=== PATIENT | male | born 1940 | race African-American/Black ===

== ENCOUNTER 2016-07-28 15:47 | Emergency (ER) | payer MEDICARE, BC ==
[~2016-07-28] VITALS: Ht 165.1 cm; Wt 100.2 kg
[~2016-07-28 15:47] MED LIST: CRES10 PO; LORA-186 PO
[2016-07-28 15:51] VITALS: Ht 165.1 cm; Wt 100.2 kg
--- NOTE | 2016-07-28 19:11 | RADRPT ---
PROCEDURE: XR Hand. CLINICAL INDICATION: Pain. TECHNIQUE: Three views of the left hand. COMPARISON: None available. FINDINGS: There are fractures of the fourth metacarpal proximal metaphysis of the fifth metacarpal base. The j oint spaces are preserved. There is soft tissue swelling in the region of the fractures. IMPRESSION: 1. Fractures of the fourth metacarpal proximal metaphysis of the fifth metacarpal base. RPTAT: HTAR .Rell Loo MD, Date Time Electronically viewed and signed by .Rell Loo MD, on 07/28/2016 19:11 .R/
--- NOTE | 2016-07-28 19:17 | RADRPT ---
PROCEDURE: CT Brain without contrast. CLINICAL INDICATION: Trauma, headache. TECHNIQUE: A CT of the brain was performed utilizing axial sections from the skull base through th e vertex without contrast. Multiplanar re-formations were generated. Images were reviewed on a high- resolution PACS workstation. CTDIvol: 38.01 mGy. DLP: 6 mm 34.23 mGy-cm. One or more of the following dose reduction techniques were used: - Automated exposure control. - Adjustment of the mA and/or kV according to patient size. - Use of iterative reconstruction technique. COMPARISON: None available FINDINGS: There is mild to moderate generalized volume loss. No hydrocephalus is seen. There is no mass effec t. No acute intracranial hemorrhage is identified. There is no extra-axial collection. No CT eviden ce of acute infarction is identified. There is patchy low attenuation in the supratentorial white m atter, a nonspecific finding which most likely represents the sequela of mild chronic microvascular ischemic disease. There are mild atherosclerotic arterial calcifications. There is a small retention cyst in the right maxillary sinus. The visualized mastoid air cells are c lear. The ossesous structures are unremarkable. There is a 1.6 x 0.8 cm lipoma overlying the left fo rehead. IMPRESSION: 1. No acute intracranial pathology. 2. Mild to moderate generalized volume loss. 3. Mild chronic microvascular ischemic changes. 4. Atherosclerotic arterial calcifications. RPTAT: HTAR .Rell Loo MD, MD Date Time Electronically viewed and signed by .Rell Loo MD, on 07/28/2016 19:17 .R/
[2016-07-28] MEDS ORDERED: ACET500C5 PO (19:20)
--- NOTE | 2016-07-28 19:25 | ERD ---
ER Documentation Chief Complaint Date/Time DATE: 07/28/16 TIME: 19:23 Chief Complaint L hand pain since lst night after GLF also abrasion to forehead. HPI This 76-year-old male tripped and fell last night. He complains of swelling and pain in his left hand without restricted range of motion weakness and a bump on the forehead. Denies loss of consciousness, vomiting, visual changes, neck pain, weakness. Patient lives alone without a systems librarian or roommate. ROS All systems reviewed and are negative except as per history of present illness. Medications Home Meds Active Scripts Acetaminophen* (Tylophen*) 500 Mg Capsule, 1 CAP PO Q6H Y for PAIN AND OR ELEVATED TEMP, #15 CAP Prov:AFSHAN LOPEZ MD 07/28/16 Reported Medications Loratadine* (Claritin*) Unknown Strength Tablet, PO DAILY, TAB 06/19/15 Rosuvastatin Calcium* (Crestor*) 10 Mg Tablet, 10 MG PO DAILY 04/18/13 Allergies Allergies: Coded Allergies: No Known Allergy (Unverified , 07/16/13) PMhx/Soc History of Surgery: Yes (PIN TO RIGHT LEG 10 YEARS AGO, HERNIA REPAIR) Anesthesia Reaction: No Hx Neurological Disorder: No Hx Respiratory Disorders: No Hx Cardiac Disorders: No Hx Psychiatric Problems: No Hx Miscellaneous Medical Probl: Yes (ARTHRITIS) Hx Alcohol Use: No Hx Substance Use: No Hx Tobacco Use: No Physical Exam Vitals Vital Signs Date Time Temp Pulse Resp B/P Pulse Ox O2 Delivery O2 Flow Rate FiO2 07/28/16 15:51 96.8 72 18 139/87 99 Physical Exam Const: [] Alert, [id number] per Head: Atraumatic there is a hematoma on the top of the forehead without appreciable step-offs or deformities. Eyes: Normal Conjunctiva ENT: Normal External Ears, Nose and Mouth. No hemotympanum. Neck: Full range of motion..~ No meningismus. Neck nontender Resp: Clear to auscultation bilaterally Cardio: Regular rate and rhythm, no murmurs Abd: Soft, non tender, non distended. Normal bowel sounds Skin: No petechiae or rashes Back: No midline or flank tenderness Ext: No cyanosis, or edema. There is some swelling mild tenderness in the left fourth and fifth metacarpal area. There is no restricted range of motion or weakness. There is no bleeding or lacerations Neur: Awake and alert Psych: Normal Mood and Affect Procedures/MDM X-ray left hand 3V interpreted by me: Scaphoid: Normal Bones: There are nondisplaced fractures of the base of the fourth and fifth metacarpals. Joints: No dislocation Foreign body: None. Nondisplaced fracture of the fourth and fifth metacarpal bases. Patient is placed in a left short arm box splint. Splint Assessment: Neurovascularly intact post splint placement with good fit. CT brain shows no bleeding, fracture, mass-effect. Patient presents with left hand fracture due to mechanical fall yesterday. There is no signs or symptoms to suggest neck injury, significant head injury, neurologic deficits. He will be discharged home with prescription of Tylenol and instructions to follow-up with an orthopedist in the next week. Return sooner for fevers, redness, vomiting, new worsening symptoms as directed and aftercare instructions. The patient was stable with no new complaints during the ER course. Clinically, there is no current evidence to suggest meningitis, sepsis, acute abdomen, pneumonia, acute coronary syndrome, pulmonary embolism, or any other emergent condition appearing to require further evaluation or hospitalization. The patient should certainly return for any new or worsening symptoms per the aftercare instructions. They should otherwise follow-up with her primary care doctor for reevaluation this week. Departure Diagnosis: Primary Impression: Head injury Encounter type: initial encounter Qualified Code: S09.90XA - Head injury, initial encounter Additional Impression: Hand fracture, right Encounter type: initial encounter Fracture type: closed Qualified Code: S62.91XA - Hand fracture, right, closed, initial encounter Condition: Stable Patient Instructions: Fracture, Hand (Closed), HEAD INJURY, No Wake-Up (Adult) Referrals: MERCEDES SILVA MD,IN PATRICIA BLANK Additional Instructions: There is a fracture of the hand in the area of swelling. CT brain read as normal. Follow-up with orthopedist within the next week. Return for new or worsening symptoms. May need authorization from primary doctor for orthopedist visit AFSHAN LOPEZ MD Jul 28, 2016 19:25
[2016-07-28 20:25] VITALS: BP 132/82; PULSE 75; RESP 16; TEMP 97.2
== END 2016-07-28 20:26 | disposition home or self-care (01) ==
LOC: FTE 15:47
DX: S09.90XA Unspecified injury of head, initial encounter (principal); S62.345A Nondisplaced fracture of base of fourth metacarpal bone, left hand, initial encounter for closed fracture; S00.83XA Contusion of other part of head, initial encounter; W01.0XXA Fall on same level from slipping, tripping and stumbling without subsequent striking against object, initial encounter; Y92.9 Unspecified place or not applicable
CPT/HCPCS: 70450

== ENCOUNTER 2017-03-19 14:08 | Emergency (ER) | payer MEDICARE, BC ==
[~2017-03-19] VITALS: Wt 96.5 kg
[~2017-03-19 14:08] MED LIST changes: +ACET500C5 PO
--- NOTE | 2017-03-19 19:03 | ERD ---
ER Documentation Chief Complaint Date/Time DATE: 03/19/17 TIME: 19:01 Chief Complaint wants vital signs weight checked, sometimes dizzy, not now. HPI 76-year-old male presents requesting his vital signs be checked. He has a history of aortic stenosis. He states that he wants to live another 18 months we can pay off his debts. Denies any chest pain or shortness of breath, weakness, syncope. He has a infant nanny who is following him and recommended that he have surgery. States that his only medications is Crestor. ROS All systems reviewed and are negative except as per history of present illness. Medications Home Meds Active Scripts Acetaminophen* (Tylophen*) 500 Mg Capsule, 1 CAP PO Q6H Y for PAIN AND OR ELEVATED TEMP, #15 CAP Prov:AFSHAN LOPEZ MD 07/28/16 Reported Medications Loratadine* (Claritin*) Unknown Strength Tablet, PO DAILY, TAB 06/19/15 Rosuvastatin Calcium* (Crestor*) 10 Mg Tablet, 10 MG PO DAILY 04/18/13 Allergies Allergies: Coded Allergies: No Known Allergy (Unverified , 07/16/13) PMhx/Soc History of Surgery: Yes (PIN TO RIGHT LEG 10 YEARS AGO, HERNIA REPAIR) Anesthesia Reaction: No Hx Neurological Disorder: No Hx Respiratory Disorders: No Hx Cardiac Disorders: No Hx Psychiatric Problems: No Hx Miscellaneous Medical Probl: Yes (ARTHRITIS) Hx Alcohol Use: No Hx Substance Use: No Hx Tobacco Use: No Physical Exam Vitals Vital Signs Date Time Temp Pulse Resp B/P Pulse Ox O2 Delivery O2 Flow Rate FiO2 03/19/17 14:13 98.3 79 20 125/59 97 Physical Exam Const: [] Alert, [id number], pleasant. Head: Atraumatic Eyes: Normal Conjunctiva ENT: Normal External Ears, Nose and Mouth. Neck: Full range of motion..~ No meningismus. Resp: Clear to auscultation bilaterally Cardio: Regular rate and rhythm, no murmurs Abd: Soft, non tender, non distended. Normal bowel sounds Skin: No petechiae or rashes Back: No midline or flank tenderness Ext: No cyanosis, or edema Neur: Awake and alert. Normal gait. No appreciable focal neurologic deficits. Psych: Normal Mood and Affect Procedures/MDM Presents with a history of any stenosis with normal vitals. Is no current signs or symptoms to suggest serious illness. Discharged home with further observation, return precautions and primary care and cardiology follow-up. The patient was stable with no new complaints during the ER course. Clinically, there is no current evidence to suggest meningitis, sepsis, acute abdomen, pneumonia, acute coronary syndrome, pulmonary embolism, or any other emergent condition appearing to require further evaluation or hospitalization. The patient should certainly return for any new or worsening symptoms per the aftercare instructions. They should otherwise follow-up with her primary care doctor for reevaluation this week. Departure Diagnosis: Primary Impression: Aortic stenosis Cardiac valve disease etiology: etiology unspecified Qualified Code: I35.0 - Aortic valve stenosis, etiology of cardiac valve disease unspecified Additional Impression: Worried well Condition: Stable Patient Instructions: Normal Exam, (Child) (Adult) Additional Instructions: See cardiology as scheduled. Recheck otherwise for new or worsening symptoms. AFSHAN LOPEZ MD Mar 19, 2017 19:03
[2017-03-19 19:07] VITALS: BP 128/62; PULSE 76; RESP 20; TEMP 98
== END 2017-03-19 19:07 | disposition home or self-care (01) ==
LOC: FTE 14:08
DX: I35.0 Nonrheumatic aortic (valve) stenosis (principal)
CPT/HCPCS: 99282

== ENCOUNTER 2017-10-27 15:01 | Emergency (ER) | END 2017-10-27 15:44 | disposition home or self-care (01) ==

== ENCOUNTER 2017-12-03 15:35 | Emergency (ER) | END 2017-12-03 18:54 | disposition home or self-care (01) ==

== ENCOUNTER 2018-07-31 15:40 | Emergency (ER) | payer MEDICARE, BC, OTHER ==
[~2018-07-31] VITALS: Ht 172.7 cm; Wt 90.0 kg
[~2018-07-31 15:40] MED LIST changes: -CRES10 PO; +OMEP40CA6 PO; +ROSU10TA55 PO
[2018-07-31 15:46] VITALS: BP 142/75; PULSE 70; RESP 20; Ht 172.7 cm; Wt 90.0 kg
--- NOTE | 2018-07-31 16:46 | ERD ---
ER Documentation Chief Complaint Chief Complaint pt is here for vital sign check and to have someone look at lab results HPI 78-year-old male presents for recheck of his vital signs as well as to interpret recent laboratory radiologic study for him. He had some surgery a few weeks ago for aortic stenosis. He apparently has an incidental finding of a thyroid nodule. He had an ultrasound of his thyroid and has questions about the results. His primary doctor is apparently out of town. Denies any pain, tachycardia, shortness of breath, fevers, additional symptoms. He has not felt any masses in his thyroid suggesting likely incidental radiologic finding. ROS All systems reviewed and are negative except as per history of present illness. Medications Home Meds Active Scripts Omeprazole* (Omeprazole*) 40 Mg Capsule., 40 MG PO DAILY, #30 CAP Prov:YOSELYN DAN MD 12/03/17 Acetaminophen* (Tylophen*) 500 Mg Capsule, 1 CAP PO Q6H PRN for PAIN AND OR ELEVATED TEMP, #15 CAP Prov:AFSHAN LOPEZ MD 07/28/16 Reported Medications Loratadine* (Claritin*) Unknown Strength Tablet, PO DAILY, TAB 06/19/15 Rosuvastatin Calcium* (Crestor*) 10 Mg Tablet, 10 MG PO DAILY 04/18/13 Allergies Allergies: Coded Allergies: No Known Allergy (Unverified , 07/16/13) PMhx/Soc History of Surgery: Yes (R Leg Pin Placement,Hernia Repair, aortic valve replacement) Anesthesia Reaction: No Hx Neurological Disorder: No Hx Respiratory Disorders: No Hx Cardiac Disorders: Yes (aortic stenosis) Hx Psychiatric Problems: No Hx Miscellaneous Medical Probl: Yes (Arthritis) Hx Alcohol Use: No Hx Substance Use: No Hx Tobacco Use: No Smoking Status: Never smoker Physical Exam Vitals Vital Signs Date Temp Pulse Resp B/P (MAP) Pulse Ox O2 O2 Flow FiO2 Time Delivery Rate 07/31/18 97.8 70 20 142/75 97 15:46 (97) Physical Exam Const: No acute distress Head: Atraumatic Eyes: Normal Conjunctiva ENT: Normal External Ears, Nose and Mouth. Neck: Full range of motion. No meningismus. No obvious palpable mobile nodules. Resp: Clear to auscultation bilaterally Cardio: Regular rate and rhythm, no murmurs Abd: Soft, non tender, non distended. Normal bowel sounds Skin: No petechiae or rashes Back: No midline or flank tenderness Ext: No cyanosis, or edema Neur: Awake and alert Psych: Normal Mood and Affect Procedures/MDM Ultrasound was reviewed with patient. There is approximately 2.3 cm nodule in the left thyroid. There is otherwise no acute abnormal findings. Biopsy recommended given size greater than 2 cm. She was counseled that the next step in evaluation of this nodule would be a biopsy which likely be performed by ear nose throat specialist. Given resources for ear nose throat specialist for further evaluation and management of this thyroid nodule. He has no evidence of airway obstruction, tachycardia, thyroid storm, sepsis, additional complications. The patient's blood pressure was elevated (>120/80) but appears stable without evidence of hypertension emergency or urgency. The patient was counseled about the risks of hypertension and urged to pursue outpatient monitoring and therapy within a week with their primary care physician. I discussed the findings with the patient. I advised the patient to follow-up with the primary physician in about 1-2 days, sooner if needed and return if any concern. Departure Diagnosis: Primary Impression: Thyroid nodule Condition: Stable Patient Instructions: Hypertension, To Be Confirmed, Tumor, Uncertain Cause Referrals: ZAID PEACOCK MD,DAYANA CORRIGAN,MAURICE COTTON,DEVON PEÑA MD Additional Instructions: Biopsy of thyroid nodule recommended due to size. See ENT for further evaluation treatment. Recheck otherwise for new or worsening symptoms with primary care doctor. Primary doctor for primary care and further follow-up of blood pressure AFSHAN LOPEZ MD Jul 31, 2018 16:46
== END 2018-07-31 16:55 | disposition home or self-care (01) ==
LOC: FTE 15:40
DX: E04.1 Nontoxic single thyroid nodule (principal)
CPT/HCPCS: 99282